=== PATIENT | female | born 1985 | race Caucasian/White ===

== ENCOUNTER 2017-06-06 05:35 | Inpatient (IN) | payer BC ==
[2017-06-06] MEDS ORDERED: Ondansetron HCl/PF 4 MG/2 ML Vial IVP PRN ×4 (05:48→10:26)
[2017-06-06] MEDS ORDERED: Promethazine HCl 25 MG/ML VIAL IM PRN ×2 (05:48→08:10)
[2017-06-06 06:45] LABS: Mean Platelet Volume 8.1 fL (7.4-10.4); Red Blood Cell (RBC) Count 3.32 mill/uL (4.20-5.40); White Blood Cell (WBC) Count 7.8 thou/uL (4.8-10.8)
[2017-06-06] MEDS ORDERED: Bicitra 30 ML UDCUP PO SCH (06:45)
[2017-06-06 06:54] VITALS: BMI 29.2
--- NOTE | 2017-06-06 07:18 | PDOC.LDHP ---
Labor and Delivery H&P Chief complaint: scheduled section HPI: 32yo at 39w by LMP here for PCS for breech presentation. A1GDM well controlled Current gestational age (weeks): 39 Due date: 06/11/17 Dating criteria: last menstrual period Grav: 1 Para: 0 Current complications: gestational diabetes (diet controlled) Abnormal US findings: No Past Medical History: denies Current medications: pre- vitamins Previous surgical history: none Allergies/Adverse Reactions: Allergies Allergy/AdvReac Type Severity Reaction Status Date / Time No Known Allergies Allergy Unverified 06/06/17 06:40 Social history: none - Physical Exam Vital signs reviewed and normal: yes General: NAD Heart: RRR Lungs: CTAB Abdomen: gravid Extremeties: no edema FHT: category 1 [place] contractions every: q10min - OB Labs Blood type: A RH: positive HIV: negative RPR: negative HEPSAg: negative 1 hour GCT: positive 3 hour GTT: positive GBS: negative Additional Labs: Rub Imm - Assessment L&D Assessment: scheduled primary section - Plan Plan: admit to L&D, to OR for section, informed consent obtained, anesthesia consult for pain management -: BREECH CONFIRMED BY SONO TODAY
--- NOTE | 2017-06-06 07:19 | PDOC.OPDEL ---
OB Operative/Delivery Note Delivery Dr/Surgeon: CODIE Assist: TOM Pre-Delivery Diagnosis: scheduled section Procedure/Post Delivery Dx: primary low transverse CS Weeks gestation: 39 Anesthesia: other (spinal converted to general by BELEM Bocanegra) - Findings A Sex: female Weight: 7 lb - 5 min: 8 - 10 min: 9 - Additional Findings/Plan Placenta delivered: spontaneous findings: low transverse hysterotomy without extension, normal uterus, normal tubes, normal ovaries Estimated blood loss: 800 Post delivery plan: routine recovery
[2017-06-06] MEDS ORDERED: Ondansetron HCl/PF 4 MG/2 ML Vial ONE (07:22)
[2017-06-06] MEDS ORDERED: Dexamethasone 4 mg/ml Vial ONE (07:22)
[2017-06-06] MEDS ORDERED: ePHEDrine/0.9% NaCl/PF SYRINGE 50 mg/10 ml ONE (07:22)
[2017-06-06] MEDS ORDERED: PHENYLEPHRINE-NS 100 MCG/ML 10 ML SYRINGE ONE (07:22)
[2017-06-06] MEDS ORDERED: Ketorolac Tromethamine 30 MG/ML VIAL ONE (07:22)
[2017-06-06] MEDS ORDERED: Oxytocin 10 UNITS/ML VIAL ONE (07:22)
[2017-06-06] MEDS ORDERED: Succinylcholine Chloride 20 MG/ML 10 ml SYRINGE FS ONE (08:02)
[2017-06-06] MEDS ORDERED: Diprivan 20 ML ONE (08:02)
[2017-06-06] MEDS ORDERED: Fentanyl 100 MCG/2 ML VIAL ONE (08:03)
[2017-06-06] MEDS ORDERED: diphenhydrAMINE HCl 50 MG/ML 1 ML VIAL IVP PRN (08:10)
[2017-06-06] MEDS ORDERED: Zolpidem Tartrate 5 MG TAB PO PRN (08:10)
[2017-06-06] MEDS ORDERED: Morphine CADD 1 MG/ML CADD IVPB PRN (08:10)
[2017-06-06] MEDS ORDERED: Meperidine HCl/PF 25 MG/ML VIAL SLOW IVP PRN (08:10)
[2017-06-06] MEDS ORDERED: diphenhydrAMINE HCl 25 MG CAP PO PRN ×2 (08:10→10:26)
[2017-06-06] MEDS ORDERED: diphenhydrAMINE HCl 50 MG/ML 1 ML VIAL IM PRN (08:10)
[2017-06-06] MEDS ORDERED: HYDROmorphone 2 MG/ML VIAL SLOW IVP PRN (08:10)
[2017-06-06] MEDS ORDERED: Ketorolac Tromethamine 30 MG/ML VIAL IVP PRN (08:10)
[2017-06-06] MEDS ORDERED: Naloxone HCl 0.4 mg/ml Vial IV PRN (08:10)
[2017-06-06] MEDS ORDERED: Ketorolac Tromethamine 30 MG/ML VIAL IVP SCH (08:15)
[2017-06-06] MEDS ORDERED: Communication Order-Pharmacy FS SCH (08:15)
[2017-06-06] MEDS ORDERED: Morphine CADD 100 ML ONE (08:57)
[2017-06-06] MEDS ORDERED: Adacel (T-DAP) 0.5 ML VIAL IM ONE (10:26)
[2017-06-06] MEDS ORDERED: Simethicone Chewable 80 MG TAB PO PRN (10:26)
[2017-06-06] MEDS ORDERED: Bisacodyl 10 MG SUPP PR PRN (10:26)
[2017-06-06] MEDS ORDERED: Acetaminophen 325 MG TAB PO PRN (10:26)
[2017-06-06] MEDS ORDERED: Docusate (Surfak) 240 MG CAP PO SCH (10:45)
[2017-06-06] MEDS ORDERED: Prenatal Vitamin 1 TAB PO SCH (11:00)
[2017-06-06] MEDS ORDERED: Ferrous Sulfate 325 MG TAB PO SCH (11:00)
[2017-06-06] MEDS: Ibuprofen 800 MG TAB PO SCH ×2 (14:17→21:53)
[2017-06-06] MEDS: Ferrous Sulfate 325 MG TAB PO SCH (20:11)
[2017-06-06] MEDS: Docusate (Surfak) 240 MG CAP PO SCH (21:53)
[2017-06-07] MEDS: Ibuprofen 800 MG TAB PO SCH ×3 (06:11→21:06)
[2017-06-07 06:28] LABS: Hematocrit 28.1 % (36.0-47.0); Mean Platelet Volume 7.6 fL (7.4-10.4); Red Blood Cell (RBC) Count 2.78 mill/uL (4.20-5.40); White Blood Cell (WBC) Count 9.2 thou/uL (4.8-10.8)
[2017-06-07] MEDS: Lactated Ringer's 1,000 ML IV SCH ×2 (07:25→09:00)
[2017-06-07] MEDS: Docusate (Surfak) 240 MG CAP PO SCH ×2 (09:00→21:06)
[2017-06-07] MEDS: Ferrous Sulfate 325 MG TAB PO SCH ×2 (09:00→21:05)
[2017-06-07] MEDS: Prenatal Vitamin 1 TAB PO SCH (09:00)
[2017-06-07] MEDS: HYDROcodone/Acetaminophen 5/325 mg Tablet PO PRN ×3 (09:16→19:20)
--- NOTE | 2017-06-07 09:24 | PDOC.PP ---
Post Progress Note Post Day #: 1 PO intake tolerated: yes Flatus: yes Ambulation: yes Vital Signs (12 hours) Temp Pulse Resp BP Pulse Ox 06/07/17 08:02 98.0 F 83 20 131/77 99 06/07/17 07:46 98.0 F 79 16 06/07/17 05:55 79 16 114/75 99 06/07/17 04:45 98.7 F 79 16 06/06/17 23:38 98.4 F 73 18 102/65 99 Weight Weight 150 lb - Physical Examination General: NAD Cardiovascular: RRR Respiratory: clear to ausculation bilateral Abdominal: no distention, appropriately TTP (inc c/d/i) Fundus firm & at: umb Extremities: negative homans (B) Skin: no rash Psychiatric: normal affect Result Diagrams: 06/07/17 06:18 Additional Labs: Post Labs Blood Type A POSITIVE 06/06/17 06:18 Hep Bs Antigen Non-Reactive S/CO (NonReactive) 06/06/17 06:18 (1) Term delivered Code(s): O80 - ENCOUNTER FOR FULL-TERM UNCOMPLICATED DELIVERY Status: Acute (2) Breech presentation delivered Code(s): O32.1XX0 - MATERNAL CARE FOR BREECH PRESENTATION, UNSP Status: Acute - Assessment/Plan VSSAF Hgb 9.7 postop, no s/sx anemia Doing well, appropriate postop milestones, pain controlled Rh pos RImm Cont postop care.
[2017-06-08] MEDS: HYDROcodone/Acetaminophen 5/325 mg Tablet PO PRN ×3 (00:57→13:35)
[2017-06-08] MEDS: Ibuprofen 800 MG TAB PO SCH ×2 (05:57→13:35)
[2017-06-08 07:54] VITALS: BP 111/66; TEMP 98.1
[2017-06-08] MEDS: Docusate (Surfak) 240 MG CAP PO SCH (08:31)
[2017-06-08] MEDS: Prenatal Vitamin 1 TAB PO SCH (08:31)
[2017-06-08] MEDS: Ferrous Sulfate 325 MG TAB PO SCH (08:31)
--- NOTE | 2017-06-08 14:35 | PRG ---
POSTOPERATIVE NOTE DATE OF SERVICE: 06/08/2017 PRIMARY OB: Dr. Tovar. SUBJECTIVE: The patient is a 32-year-old female, now postoperative day #2, status post a primary C- section for breech presentation. The patient reports that she is tolerating p.o., voiding on her ow n, having good pain control and is ambulating. The patient has expressed some interest in discharge today. OBJECTIVE: VITAL SIGNS: Blood pressure is 111/66, temperature 98.1, pulse of 83, respiratory rate of 18 and sa tting 98% on room air. GENERAL: She appears to be in no acute distress. She is alert and oriented, cooperative and pleasa nt to interactive with. HEENT: Head is normocephalic and atraumatic. ABDOMEN: Appropriately tender. Incision is clean, dry and intact with tita. There is no indura tion or erythema. EXTREMITIES: Nontender and nonedematous. LABORATORY DATA: Her postoperative hemoglobin is 9.7, hematocrit 28.1 and platelets of 171,000. ASSESSMENT AND PLAN: The patient is postoperative day #2, status post a primary for breec h presentation. She and her family are discussing discharge today and will be notifying the staff i f she would like to go home. I have spoken to Dr. Vang, the integration solution architect taking care of that the who says that the child can be discharged today if the family decides to go. Otherwise, we will continue postoperative care and anticipate discharge tomorrow.
--- NOTE | 2017-06-11 15:53 | OP ---
DATE OF OPERATION: 06/06/2017 PREOPERATIVE DIAGNOSES: 1. Intrauterine at 39 weeks and 2 days. 2. Breech presentation. 3. A1 gestational diabetes. POSTOPERATIVE DIAGNOSES: 1. Intrauterine at 39 weeks and 2 days. 2. Breech presentation. 3. A1 gestational diabetes. PROCEDURE: Primary low transverse section via Pfannenstiel skin incision. ANESTHESIA: Spinal converted to general by BELEM Bucio. ATTENDING SURGEON: Carin Tovar MD BRIM BUSTER SURGEON: Suly Thompson D.O. ESTIMATED BLOOD LOSS: 800 mL. INTRAVENOUS FLUIDS: 1600 mL of crystalloid. URINE OUTPUT: 200 mL of clear urine. COMPLICATIONS: None. DRAINS: Johnson catheter. FINDINGS: Female infant in tomasa breech presentation weighing 7 pounds 0 ounces, Apgars of 8 and 9, clear amniotic fluid. Normal uterus, ovaries and tubes bilaterally. Hysterotomy without extension and correct the counts x2. OPERATIVE TECHNIQUE: The patient was taken to the operating room where spinal anesthesia was obtain ed after multiple attempts by BELEM Bucio. The patient was prepped and draped in a sterile fashion in the dorsal supine position with a leftward tilt. The patient was tested and found to have adequa te spinal anesthesia and a Pfannenstiel skin incision was made; however, upon initial incision, the patient did feel the sharp cut of the knife. Additional time was allowed to get the spinal to set u p. However, it had already been setting up for a prolonged period of time. The patient was placed in slight reverse Trendelenburg. Additional testing after approximately 5 additional minutes, found the patient to not be adequately anesthetized with the spinal anesthesia; therefore, the patient wa s put under general anesthesia. Once this was obtained and then the Pfannenstiel skin incision was carried down to the underlying subcutaneous tissue with the knife and the fascia was nicked in the m idline with the knife and carried laterally with the Mayos. The superior aspect of the fascia tende d with 2 Kochers and dissected off the rectus bluntly, and as well as with the Mayos, the inferior a spect of the fascia was tented with 2 Kochers and dissected off the rectus with the Mayos. The rect us were bluntly divided in the midline. Peritoneum was bluntly entered into and manually retracted. The Sarabjit O retractor was placed in the lower uterine segment was incised in a transverse fashion and extended with the Damon maneuver. The breech was brought to the hysterotomy and delivered with standard breech maneuvers atraumatically followed by the head giving flexion with fundal pressure an d Nuwynynxh-Nngqfia-Wolo maneuver. The infant's cord was clamped and infant handed to awaiting ml team. Cord blood was obtained and the placenta was spontaneously delivered. The uterus was exterio rized and cleared of all clots and debris and noted to be boggy. At that time, Methergine was arita d for and the hysterotomy was repaired with a #1 Monocryl in a running locking fashion with excellen t reapproximation and hemostasis. Uterine tone was noted to improve especially after Methergine 0.2 mg was given. The uterus was placed back into the abdomen and noted to be hemostatic. The pelvis was irrigated and suctioned and hemostasis was once again noted. The Sarabjit O retractor was removed and all clots were removed out of the pelvis. The rectus muscles were examined and noted to be hem ostatic. The fascia was repaired with 0 PDS x2 sutures with excellent reapproximation. The subcuta neous tissue was irrigated and cauterized of any bleeders and reapproximated with a 2-0 plain gut in a running fashion. Skin was closed with 4-0 Monocryl in a subcuticular fashion. Dermabond was amrit lied as well as a pressure dressing. The patient tolerated the procedure well. Sponge, lap, and ne edle counts were correct x2. The patient was taken to recovery room in stable condition. The patie nt received Ancef 2 grams prior to the procedure.
== END 2017-06-08 16:34 | disposition home or self-care (01) | DRG 766 ==
LOC: L&D 05:35 → 3SE 11:11
PROVIDERS: ADMIT Student in an Organized Health Care Education/Training Program; ATTEND Student in an Organized Health Care Education/Training Program
PROC: 10D00Z1 Extraction of Products of Conception, Low, Open Approach (ICD-10-PCS; principal; 2017-06-06)
DX: O64.1XX0 Obstructed labor due to breech presentation, not applicable or unspecified (principal); O24.420 Gestational diabetes mellitus in childbirth, diet controlled; Z3A.39 39 weeks gestation of pregnancy; Z37.0 Single live birth
CPT/HCPCS: 36415; 36416; 85027; 86780; 86850; 86900; 86901; 87340; J1100; J1885; J2210; J2270; J2274; J2405; J2590; J2704; J3010

== ENCOUNTER 2019-11-02 12:20 | Outpatient (CLI) | payer BC ==
--- NOTE | 2019-11-03 07:44 | RAD ---
XR Chest Pa Lat STANDARD HISTORY: Cough, wheezing COMPARISON: None FINDINGS: The heart size is normal. The lungs are well expanded without focal areas of consolidation, pneumothorax or pleural effusions. IMPRESSION: No radiographic evidence of acute cardiopulmonary process.
== END 2019-11-02 12:21 | disposition home or self-care (01) ==
LOC: BICRAD 12:20
PROVIDERS: ATTEND Physician Assistant
DX: R05 Cough (principal)
CPT/HCPCS: 71046